=== PATIENT | female | born 2000 | race Caucasian/White ===

== ENCOUNTER → 2020-05-05 | Outpatient (REF) | payer BC ==
[2020-05-05 16:09] LABS: CHLAMYDIA DNA AMPLIFICATION NEGATIVE (NEGATIVE); GC DNA AMPLIFICATION NEGATIVE (NEGATIVE)
== END ==
LOC: M SFHCWAGY 13:36
PROVIDERS: ATTEND Obstetrics & Gynecology
DX: Z12.4 Encounter for screening for malignant neoplasm of cervix (principal)
CPT/HCPCS: 87661; G0123

== ENCOUNTER → 2020-06-24 | Outpatient (CLI) | payer BC ==
--- NOTE | 2020-06-24 08:56 | REP ---
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 TECHNIQUE: Transabdominal pelvic ultrasound with color Doppler evaluation of the ovaries. FINDINGS: Bladder is unremarkable and measures 12.0 x 10.7 x 6.7 cm (450 cc). Normal anteverted uterus measures 7.4 x 2.2 x 4.4 cm. The endometrial complex measures 3.0 mm thickness. No discrete uterine or endometrial abnormalities are appreciated. Bilateral ovaries are normal in appearance and vascularity without evidence for torsion. Right ovary measures 3.4 x 2.1 x 1.9 cm; R I = 0.50. Left ovary measures 4.1 x 1.8 x 2.7 cm; R I = 0.47. No pelvic fluid or adnexal abnormality. IMPRESSION: Normal pelvic ultrasound <Electronically signed by Miguel Dunlap > 06/24/20 0853
== END ==
LOC: EDUNIT# 08:00 → M WHC 08:07
PROVIDERS: ATTEND Obstetrics & Gynecology
DX: N94.10 Unspecified dyspareunia (principal)